=== PATIENT | female | born 1960 | race Hispanic/Latino ===

== ENCOUNTER 2023-03-10 09:38 | Emergency (ER) | payer OTHER ==
[~2023-03-10] VITALS: Ht 160 cm; Wt 56.0 kg
[2023-03-10 10:03] VITALS: BP 140/56
[2023-03-10 10:33] VITALS: BP 140/56
[2023-03-10] MEDS ORDERED: CLEOCIN300 MG PO (10:45)
[2023-03-10] MEDS ORDERED: HYDROCO/APAP1 TA9 PO (10:45)
== END 2023-03-10 11:09 | disposition home or self-care (01) ==
LOC: ED 09:38
DX: K08.89 Other specified disorders of teeth and supporting structures (principal); F17.290 Nicotine dependence, other tobacco product, uncomplicated; Z88.8 Allergy status to other drugs, medicaments and biological substances